=== PATIENT | female | born 1955 | race Caucasian/White ===

== ENCOUNTER 2017-04-17 14:19 | Inpatient (IN) | payer MEDICARE, OTHER ==
[2017-04-17] VITALS (8 sets, daily range): BP systolic 00–143; BP diastolic 00–83
[~2017-04-17] VITALS: Ht 154.9 cm; Wt 64.9 kg
[2017-04-17 14:45] LABS: URINE BILIRUBIN NEGATIVE (Negative); URINE BLOOD 3+ (Negative); URINE CLARITY CLEAR; URINE COLOR YELLOW; URINE GLUCOSE-RANDOM NEGATIVE (Negative); URINE KETONES TRACE (Negative); URINE LEUKOCYTES-REFLEX NEGATIVE (Negative); URINE NITRITE-REFLEX NEGATIVE (Negative); URINE PROTEIN 2+ (Negative); URINE SPECIFIC GRAVITY >= 1.030 (1.005-1.030); URINE UROBILINOGEN 0.2 E.U./dl (0.2-1.0)
[2017-04-17] MEDS ORDERED: TRAMADOL 50 MG50 MG PO (14:54)
[2017-04-17] MEDS ORDERED: NEURONTIN600 MG PO (14:56)
[2017-04-17 14:57] LABS: AMP/METHAMP Negative (Negative); BARBITURATES POSITIVE (Negative); BENZODIAZEPINES Negative (Negative); COCAINE Negative (Negative); METHADONE Negative (Negative); OPIATES POSITIVE (Negative); PCP Negative (Negative); THC Negative (Negative)
[2017-04-17] MEDS ORDERED: OXYCONTIN10 M1 PO (14:57)
[2017-04-17] MEDS ORDERED: LIORESAL 10 MG10 MG PO (14:57)
[2017-04-17 14:59] LABS: HEMATOCRIT 43.2 % (37.0-47.0); HEMOGLOBIN 13.7 gm/dL (12.0-15.0); MCHC 31.8 g/dL (28.0-37.0); MCV 91.2 fL (80.0-100.0); NUCLEATED RBCS 0 /100WBC; PLATELET COUNT* 191 thou/uL (150-400); RBC 4.74 mil/uL (4.20-5.00); RDW-CV 15.6 % (10.5-14.5); WBC 28.4 thou/uL (4.0-11.0)
[2017-04-17 15:06] LABS: HYALINE CASTS 0-3 Few /LPF (None Seen); MUCUS 0-3 Light strn/LPF (None Seen); SQUAMOUS 4-10 Moderate /LPF (0-3)
[2017-04-17 15:07] LABS: URINE RBC 3-10 Few /HPF (0-2); URINE WBC-REFLEX 0-5 Rare /HPF (0-5)
[2017-04-17 15:08] LABS: AMORPHOUS URATES Moderate /LPF (None Seen); BACTERIA-REFLEX 1-9 Few /HPF (None Seen)
[2017-04-17 15:12] LABS: POTASSIUM 3.8 mmol/L (3.5-5.1)
[2017-04-17 15:19] LABS: ALBUMIN 2.8 g/dL (3.4-5.0); TOTAL BILIRUBIN 0.3 mg/dL (<0.1-1.0); TROPONIN-I LEVEL 0.22 ng/mL (<0.06)
[2017-04-17 15:25] LABS: BE 1.9 mmol/L (-2 to +3); HCO3 26.3 mmol/L (22.0-26.0); PCO2 40.3 mmHg (35.0-45.0); pH 7.432 (7.340-7.450)
[2017-04-17 15:34] LABS: ABSOLUTE LYMPHOCYTES 1.7 thou/uL (0.8-5.3); ABSOLUTE MONOCYTES 0.3 thou/uL (0.0-1.2); ABSOLUTE NEUTROPHILS 26.4 thou/uL (1.6-8.1)
[2017-04-17 15:36] LABS: PLATELET ESTIMATE ADEQUATE
[2017-04-17 15:37] LABS: CLUMPED PLTS FEW
--- NOTE | 2017-04-17 15:57 | NUR ---
CT OF HEAD ATTEMPTED PATIENT TO UNCOOPERATIVE AT THIS TIME TO PERFORM SCAN
[2017-04-17 16:25] LABS: INFLUENZA A ANTIGEN None Detected (None Detect); INFLUENZA B ANTIGEN None Detected (None Detect)
--- NOTE | 2017-04-17 18:11 | NUR ---
1655 PT ADMITTED PER CART FROM ER. SEE ADMISSION ASSESSMENT AND HISTORY. PT STATES SHE HAS ALLERGY TO TYLENOL BUT HAD TYLENOL IN ER WITHOUT REACTION.. NSR.
--- NOTE | 2017-04-17 18:25 | NUR ---
SPOKE WITH DR DALEY FOR ID. DR CLARK WILL SEE IN AM
--- NOTE | 2017-04-17 22:40 | NUR ---
PT. HAS BEEN VERY MANIPULATIVE SINCE BEGINNING OF SHIFT, REFUSING TEMPERATURE TO BE TAKEN, REFUSING NURSE TO PUT BP CUFF BACK ON. C/O PAIN "ALL OVER" BUT ADAMANTLY REFUSING TYLENOL TO DECREASE TEMPERATURE. INITIALLY REFUSED IBUPROFEN WELL, AFTER SOME DISCUSSION PT. DID AGREE TO TAKE IBUPROFEN. PT. GIVEN ONE TIME ORDER OF OXYCODONE IR FOR PAIN PER DR. AG. PT. INSISTED OJEDA CATHETER BE REMOVED, DR. AG NOTIFIED, ORDER TO DC OJEDA CATHETER. PT. INSISTS THAT SHE IS NOT BEING LISTENED TO, THAT NURSING STAFF IS NOT GIVING HER WHAT SHE NEEDS. WILL CONTINUE TO MONITOR.
[2017-04-18] VITALS: BP 101/43
--- NOTE | 2017-04-18 01:09 | NUR ---
PT. IS NOW REFUSING TO WEAR PULSE OX. DR. AG NOTIFIED
[2017-04-18 05:00] VITALS: BP 112/56
--- NOTE | 2017-04-18 05:26 | NUR ---
PT. HAS REMAINED MANIPULATIVE/DEMANDING/NON-COMPLIANT THROGHOUT SHIFT. ARGUMENTATIVE WITH NURSES. YELLED AT THIS RN ON MULTIPLE OCCASIONS. LARGE BM THIS A.M. ON BEDPAN. IVF FLUIDS REMAIN INFUSING. ATIVAN ORDER GIVEN X1 DOSE, ATIVAN GIVEN, PT. SLEPT FOR A FEW HOURS AFTER ADMINISTRATION, VERY HELPFUL IN REDUCING HER AGITATION AND ANXIETY. WILL CONTINUE TO MONITOR.
[2017-04-18 07:23] LABS: ABSOLUTE BASOPHILS 0.1 thou/uL (0.0-0.2); ABSOLUTE LYMPHOCYTES 0.8 thou/uL (0.8-5.3); ABSOLUTE MONOCYTES 1.2 thou/uL (0.0-1.2); ABSOLUTE NEUTROPHILS 22.2 thou/uL (1.6-8.1); BASOPHILS 0.4 %; HEMATOCRIT 32.6 % (37.0-47.0); HEMOGLOBIN 11.1 gm/dL (12.0-15.0); LYMPHOCYTES 3.4 %; MCH 29.2 pg (26.0-34.0); MCV 85.8 fL (80.0-100.0); MONOCYTES 4.8 %; MPV 9.6 fl. (7.2-11.1); NUCLEATED RBCS 0 /100WBC; PLATELET COUNT* 166 thou/uL (150-400); POLYS 91.4 %; RDW-CV 15.2 % (10.5-14.5); WBC 24.3 thou/uL (4.0-11.0)
[2017-04-18 07:31] LABS: CALCIUM 7.9 mg/dL (8.5-10.1); CREATININE 0.7 mg/dL (0.6-1.3); POTASSIUM 3.6 mmol/L (3.5-5.1)
[2017-04-18 09:02] VITALS: BP 127/67
--- NOTE | 2017-04-18 10:27 | EKG ---
[place] [address] ELECTROCARDIOGRAM REPORT Name: MONSIVAISENA Cecelia Room: [address] ADM IN .R.#: [id number] Admission: 04/17/17 Attend Phys: Christopher Coleman MD Discharge: Date of : 51 Report #: [id number] THIS REPORT FOR: //name// [facility] ED Test Date: 2017-04-17 Test Time: 14:23:34 Pat Name: DAVID ROE Department: Room: [address] Gender: F Programmer Developer: Felipe DURAN : 1955 Requested By: Eve Gaspar Order Number: [id number] Shashank MD: Bismark Childers Measurements Intervals [place] Rate: 152 P: 44 ME: 109 QRS: -86 QRSD: 78 T: 21 QT: 273 QTc: 434 Interpretive Statements Sinus tachycardia Anterolateral infarct, old No previous ECG available for comparison Electronically Signed On 04-18-2017 10:27:21 QUALITY CONTROL ENGINEERING TECHNICIAN by Bismark Childers [email or web address] <ELECTRONICALLY SIGNED> By: Bismark Childers MD, [facility] 04/18/17 1027 1423 1423 Bismark Childers MD, FAC /EPI
--- NOTE | 2017-04-18 10:45 | NUR ---
PT BUSY WITH HER NURSE NOW. SPOKE WITH NURSE EARLIER. PT WAS LIVING IN HER CAR. SHE DID NOT GIVE ANY CONTACT INFORMATION WHEN ADMITTED BUT NURSE SAID SHE HAS MENTIONED FAMILY THAT LIVE IN THE AREA. NURSE WILL ATTEMPT TO GET MORE INFORMATION FROM PT. CASE MGT WILL ASSESS AT LATER TIME.
--- NOTE | 2017-04-18 11:20 | CON ---
[address] [address] CONSULTATION Name: DAVID ROE Room: [address] IN M.R.#: [id number] Admission: 04/17/17 Attend Phys: Christopher Coleman MD Discharge: Date of : 51 Report #: [id number] THIS REPORT FOR: //name// CC: Christopher Coleman [facility] unknown DATE OF SERVICE: 04/18/2017 ATTENDING PHYSICIAN: Christopher Coleman M.D. REASON FOR EVALUATION: Right-sided consolidative pneumonitis. HISTORY OF PRESENT ILLNESS: Chart reviewed, patient examined. This is a 61-year-old female, I think is homeless, has extensive medical history including autoimmune connective tissue disease, Sjogren disease, Raynaud's, who apparently has been ill for the last month. She describes relapsing pneumonia. She has been in shelters, seems to worsen, gets better only to be what she describes as reinfected. She was asked to leave the retirement yesterday. It is not clear that she had fevers prior to that, but she certainly had a temperature documented of 104.7. She is seen in the Intensive Care Unit. She is mildly encephalopathic. Denies significant pain at this point other than her baseline pain. I specifically questioned about abdominal related pain and discomfort. She is on supplemental oxygen per nasal cannula. She is on broad spectrum therapy with aztreonam, levofloxacin, Tamiflu, vancomycin. ALLERGIES: PENICILLINS, PROPOXYPHENE, NAPROXEN, CEPHALOSPORINS. CURRENT MEDICATIONS: Include baclofen, gabapentin, tramadol, levofloxacin, pantoprazole, vancomycin, ipratropium, albuterol inhaler, ibuprofen, Tamiflu, aztreonam, guaifenesin, acetaminophen. PAST MEDICAL HISTORY: As noted above, Raynaud's, fibromyalgia, myofascial plasticity, neuropathy, Sjogren disease, atypical connective tissue disease, digestive tract cancer, hysterectomy, cholecystectomy, PTSD. SOCIAL HISTORY: Nonsmoker, no ethanol or illicit drug use. FAMILY HISTORY: Noncontributory. REVIEW OF SYSTEMS: As above. Does admit to poor appetite and weight loss, although she cannot quantify it. PHYSICAL EXAMINATION: VITAL SIGNS: T-max of 104.7, more recently 97.7. Pulse 97, respirations 23, blood pressure 123/67. SKIN: Warm, dry[place] [address] CONSULTATION Name: DAVID ROE Room: [address] IN [facility]#: [id number] Admission: 04/17/17 Attend Phys: Christopher Coleman MD Discharge: Date of : 51 Report #: [id number] HEENT: Nasal cannula oxygen in place. NECK: Supple. LUNGS: Scattered coarse breath sounds, more so on the right, somewhat diminished upper lobes. HEART: Regular. I do not appreciate a murmur. ABDOMEN: Soft, nontender. There is mild distention. GENITOURINARY AND RECTAL: Deferred. LABORATORY DATA: Blood cultures sterile thus far. Prealbumin 6.9. Electrolytes: Sodium 145, potassium 3.6, chloride 112, bicarbonate 27, BUN and creatinine 17 and 0.7, glucose of 112. Estimated GFR of 85. CBC: White count 24.3, H and H 11.1 and 32.6, platelets of 166. Influenza antigen was negative. Lactic acid 1.5. ABGs: PH 7.432, pCO2 of 40.3 and pO2 of 69.0 on 2 liters. Liver functions otherwise unremarkable. Albumin of Total protein 7.0. Chest x-ray, dense consolidative infiltrate, right upper lobe. Urinalysis 0-5 white cells. ASSESSMENT: Probable bacterial pneumonitis, lobar, with consolidation. I certainly think it is reasonable to continue empiric antimicrobial therapy, would assume a gram-positive at this point and cannot be entirely certain. Given multitude of hypersensitivities, I think the current approach is reasonable. We will continue efforts to obtain sputum urinary antigen, rapid MRSA. Continue to wean off support as allowed. We will need evidence of clearing with x-rays to assure resolution. <ELECTRONICALLY SIGNED> By: Lance Obrien MD 04/18/17 1120 0944 [id number] Obrien MD /nt
[2017-04-18 11:36] VITALS: BP 112/62
--- NOTE | 2017-04-18 18:28 | NUR ---
Patient remains in ICU DEMANDING BUT CAN BE COOPERATIVE AND ALMOST PLEASANT. CONTINUES TO COUGH UP RED TINGED SPUTUM. TAKING PO IN SMALL AMOUNTS.
[2017-04-18 20:37] VITALS: BP 147/81
[2017-04-18 23:46] VITALS: BP 118/67
[2017-04-19 03:27] LABS: ABSOLUTE EOSINOPHILS 0.1 thou/uL (0.0-0.7); ABSOLUTE LYMPHOCYTES 1.2 thou/uL (0.8-5.3); EOSINOPHILS 0.4 %; HEMOGLOBIN 10.5 gm/dL (12.0-15.0); LYMPHOCYTES 6.3 %; MCH 29.1 pg (26.0-34.0); MONOCYTES 5.3 %; NUCLEATED RBCS 0 /100WBC; WBC 19.6 thou/uL (4.0-11.0)
[2017-04-19 03:28] LABS: ABSOLUTE BASOPHILS 0.1 thou/uL (0.0-0.2); ABSOLUTE NEUTROPHILS 17.1 thou/uL (1.6-8.1); BASOPHILS 0.6 %; HEMATOCRIT 31.1 % (37.0-47.0); MCHC 33.9 g/dL (28.0-37.0); MCV 85.8 fL (80.0-100.0); MPV 9.9 fl. (7.2-11.1); PLATELET COUNT* 163 thou/uL (150-400); POLYS 87.4 %; RBC 3.62 mil/uL (4.20-5.00); RDW-CV 15.1 % (10.5-14.5)
[2017-04-19 03:29] LABS: CREATININE 0.7 mg/dL (0.6-1.3); POTASSIUM 3.3 mmol/L (3.5-5.1)
[2017-04-19] MEDS ORDERED: ATIVAN1 MG PO (05:04)
--- NOTE | 2017-04-19 05:31 | NUR ---
Pt pleasant and cooperative during most of shift. By 0300 pt displaying signs of frustration and beginning to make multiple requests. Pt states she is "tired of not getting sleep bc I'm not getting my lorazepam." Informed pt that lorazepam is not listed among her home medications in her chart, to which she states, "I don't know why that is since it was in the bag that got sent down to pharmacy." Informed that lorazepam has now been added to her home med list. Pt states she wants to see the bag of meds bc she doesn't trust that they are all still there. Also expressed concern [facility] not have [facility] and is using hers to administer to her, so she is concerned about being able to get a new prescription if they run out. Pt also concerned about the whereabouts of her car, purse, and glasses as well as other belongings. States case management was supposed to talk with her about her car but has not seen anyone yet. Also states she has not seen a doctor in the last 3 days. Pt has expressed multiple complaints, ranging from the BP cuff inflating too tightly, wanting a new pulseox probe because the cord is in her way, and people are "shutting the door in my face when I am trying to let them know of something else I need." Explained to patient that I was not aware of her trying to let me know anything further as I leave her room, to which she states "I guess I wasn't speaking very loudly." VSS. Up to BSC with minimal assistance 3-4 times during shift. Informed pt that she may be stable enough to transfer to floor later today, and therefore would have fewer cords attached to her. Will continue to monitor.
--- NOTE | 2017-04-19 07:39 | NUR ---
ASSSUMED CARE OF PATIENT AT 0730 SEE DOCUMENTED ASSESSMENT. PT TO GO TELE ROOM 8.DROPLET ISOLATION MAINTAINED
[2017-04-19 07:51] VITALS: BP 155/75
--- NOTE | 2017-04-19 07:52 | NUR ---
0724 ASSUMED CARE OF PT. PT TO GO TO ROOM 208. SEE DOCUMENTED ASSESSMENT. DR WAGONER SENT FOR ORDER TO REPLACE POTASSIUM
--- NOTE | 2017-04-19 08:31 | NUR ---
to tele per wheelchair.report to arianna
[2017-04-19 11:47] VITALS: BP 146/80
--- NOTE | 2017-04-19 14:11 | NUR ---
Spoke with Pt regarding living situation. Pt states that she has been homeless. Pt apparently was living in [place], drove to [place], [place] and was found by EMS in [place], [place]. Pt states that she is homeless. Pt states that she was born in this area, and believes that she has some cousins in this area and in [facility]. Pt did not provide the name and contact numbers for any of her family. Pt asked CM to find her belongings and car. CM contacted security, spoke with Skip, he confirmed that they have Pt's wallet, some keys, a ring, a credit card and some escobar of Pt's. CM contacted [facility], they confirmed where they picked up Pt, at [address], in , which is the parking lot of [facility]. Spoke with staff at daycare, they informed that [facility] had the car towed. CM contacted [facility], was informed that the car would've been towed by [employer] [facility] tow [phone]. [facility], they informed CM that the car actually is not Pt's, it is a rental car from [employer]. Staff informed that they are not able to release any of the car's content to the Pt, it will be up to [employer] to release the contents, once they come and potato picker the car and pay off the tow fees. ZACHARY updated Pt, Pt not happy about the findings, stating "I know what you guys are trying to do." Pt requesting that her wallet be brought up from security, CM will have security do that once Pt is done take a bath. Following.
--- NOTE | 2017-04-19 14:14 | NUR ---
PT TRANSFERED TO UNIT AROUND 0800 PT IS ALERT AND ORIENTED X 4 PT C/O PAIN GAVE SCHEDULED OXYCODONE PT FIXATED ON HER ATIVAN PHYSICIAN ORDERED ATIVAN BID GAVE DOSE AND EXPLAINED TIMING OF MEDICATIONS PT BECAME AGITATED THIS NURSE EDUCATED PT THAT MEDICATION TIMES CAN ONLY BE CHANGED BY PHYSICIAN ORDERS PT THROUGHOUT THE DAY HAS BECOME HOSTILE AND INAPPROPRIATE WITH STAFF PT IS MORE CONCERNED WITH SHOWER THAN WITH GETTING HER ANTIBIOTICS THIS NURSE EDUCATED PT ON THE IMPORTANCE TAKING HER ANTIBIOTICS PT WAS AGITATED AND INAPPROPRIATE PT WAITED FOR ANTIBIOTICS TO FINISH AND TOOK SHOWER, PT IS ON DROPLET FOR THE FLU, PT IS UP WITH WALKER PT IS NOT A FALL RISK. PT TALKED WITH CASE MANAGEMENT ABOUT PERSONAL BELONGINGS AND CAR CASE MANAGEMENT DISCOVERED THAT THE CAR DID NOT BELONG TO THE PT AND EXPLAINED THIS INFORMATION TO THE PT WHO STATED THAT SHE KNOWS WHAT WE ARE TRYING TO DO TO HER PT IS PARNOID AND HAS STATED THIS IS A CONSPIRACY THEORY TO KEEP HER FROM GETTING HER MEDICATIONS WHICH ARE LOCKED IN PHARMACY PER HOSPITAL PROTOCOL THIS INFORMATION HAS BEEN EXPLAINED TO PT MULTIPLE TIMES, PT HAS ACCUSED STAFF OF YELLING AT HER AND KEEPING HER BELONGINGS FROM HER, PT IS SR ON MONITOR WILL CONTINUE TO MONITOR
[2017-04-19 16:00] VITALS: BP 151/82
--- NOTE | 2017-04-20 03:58 | NUR ---
PT CONFUSED AND AGITATED. PT REPORTED THAT SHE WANTED TO LEAVE AMA, WAS EXPLAINED TO PT THAT IF SHE WHERE TO LEAVE AMA SHE HAD NO WHERE TO GO, PT DESIDED TO STAY. PT MED/SURGE STATUS. PT REFUSES IV. PT NON COMPLIANT WITH MEDICATIONS. GIVEN DOSE OF K+ FOR LOW K+. PT ON ISO FOR FLU. PT PARRANOID. VITALS WNL. PT IS X1 ASSIST. FALL PRECAUTIONS IN PLACE. HOURLY ROUNDING FOR SAFETY.
[2017-04-20 07:30] VITALS: BP 148/95
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
[2017-04-20] MEDS ORDERED: OSELB75 PO (14:41)
[2017-04-20] MEDS ORDERED: LEVAQUIN 500 M500 M2 PO (14:42)
[2017-04-20] MEDS ORDERED: MIRALAX17 GM PO (14:43)
[2017-04-20] MEDS ORDERED: TYLENOL325 MG PO (14:44)
[2017-04-20] MEDS ORDERED: IBUPROFEN 400400 M2 PO (14:44)
[2017-04-20] MEDS ORDERED: COLACE100 MG PO (14:45)
[2017-04-20] MEDS ORDERED: MUCINEX600 MG PO (14:52)
[2017-04-20 14:58] VITALS: BP 148/95
--- NOTE | 2017-04-20 16:30 | NUR ---
CM and Pt both called [employer], they requested that Pt call back at 6pm to check on bed availablility [phone]. CM attempted to contact [employer] in [place] [phone], phone just rings continuously. CM contacted Gina, their [facility] [phone]. Homeless Hotline is no longer an active program. Nurse has cab voucher if [place] [facility] [place] [facility] this [place]. 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 Pt requesting a walker, contacted Destinee at [facility], she ok'd walker to be dispensed to Pt. CM faxed order, and will complete necessary paperwork.
[2017-04-20 16:36] VITALS: BP 132/76
[2017-04-20 20:00] VITALS: BP 151/80
[2017-04-21 00:06] VITALS: BP 157/76
--- NOTE | 2017-04-21 03:56 | NUR ---
PATIENT ALERT AND ORIENTED X4. VERY PLEASANT THROUGHOUT THE SHIFT. UP INDEPENDENT IN ROOM. MEDICATED FOR PAIN WITH PARTIAL EFFECT REPORTED. VITALS STABLE ON ROOM AIR. WILL CONTINUE TO MONITOR.
[2017-04-21 06:11] LABS: CALCIUM 8.2 mg/dL (8.5-10.1); CREATININE 0.7 mg/dL (0.6-1.3); POTASSIUM 4.3 mmol/L (3.5-5.1)
[2017-04-21 07:30] VITALS: BP 124/86
--- NOTE | 2017-04-21 09:10 | NUR ---
Senior Living was not secured for Pt last evening, all shelters were full. CM contacted [facility] [phone], and left a VM. [facility] [phone], was informed that their program is a 90 day program, so they very seldom have openings. [facility] [employer] in [place] [phone] only accepts woment with minor children. CM attempted to contact [employer] [place] [phone], phone just keeps ringing. Cm will continue to try and locate a chcf for Pt.
--- NOTE | 2017-04-21 11:40 | NUR ---
RECEIVED PT CARE 0700. PT IS ALERT AND ORIENTED X4. FORGETFUL AT TIMES. VSS. AM ASSESSMENT CHARTED. MEDS PER MAR. PLANNING FOR PATIENT TO DC TODAY. CASE MANAGEMENT ASSISTING WITH FINDING A HOMELESS RETIREMENT FOR HER TO GO TO. PT UP WITH A WALKER IN HER ROOM. AMBULATES TO RESTROOM. GAIT IS STEADY. CALL LIGHT WITHIN REACH. WILL CONTINUE TO MONITOR.
[2017-04-21 12:00] VITALS: BP 128/56
--- NOTE | 2017-04-21 16:11 | NUR ---
BED AVAILABLE AT [facility]. PATIENT ASKED FOR CAB VOUCHER TO AIRPORT TO BLACK TOP MACHINE OPERATOR HER BELONGINGS AT [employer]. BUS INFORMATION GIVEN TO PATIENT TO GET TRANSPORTATION TO [facility]. SECURITY ON FLOOR TO RETURM HER BELONGINGS. PHARMACY RETURNED HOME MEDICATIONS. ALL BELONGINGS ARE PACKED AND LEAVING WITH PATIENT. SCRIPT CALLED INTO PATIENTS PHARMACY IN [place] THAT SHE NORMALLY FILLS AT AND PAPER SCRIPT ALSO GIVEN IN THE EVENT THE PATIENT CANT MAKE IT TO THAT PHARMACY. PT VERBALIZED UNDERSTANDING. PT LEAVING VIA WHEELCHAIR ESCORTED TO [place] BY NURSING STAFF.
== END 2017-04-21 16:17 | disposition home or self-care (01) | DRG 871 ==
LOC: EDBD 14:19 → M.ERS 14:19 → M.ICU 16:21 → M.TBA-ER 16:21 → M.ICU 17:09 → M.2W 04-19 07:53
PROVIDERS: Internal Medicine; Personal Emergency Response Attendant; ADMIT Internal Medicine
DX: A41.9 Sepsis, unspecified organism (principal); G93.40 Encephalopathy, unspecified; J18.9 Pneumonia, unspecified organism; F11.20 Opioid dependence, uncomplicated; G62.9 Polyneuropathy, unspecified; F43.10 Post-traumatic stress disorder, unspecified; G89.29 Other chronic pain; E86.0 Dehydration; I95.9 Hypotension, unspecified; E87.6 Hypokalemia; Z88.0 Allergy status to penicillin; Z88.8 Allergy status to other drugs, medicaments and biological substances; Z79.899 Other long term (current) drug therapy; Z90.710 Acquired absence of both cervix and uterus; Z90.49 Acquired absence of other specified parts of digestive tract; Z59.0 Homelessness